=== PATIENT | male | born 1940 | race Caucasian/White ===

== ENCOUNTER → 2017-01-11 | Outpatient (REF) ==
[~2017-01-11] MED LIST: ACID REDUCER200 MG PO; ATIVAN 1MG T1 MG/TAB PO; CALCIUM200 MG PO; GAS FREE EXTRA125 MG; IRON325 MG PO; LORAZEPAM2 MG PO; MULTIPLE VITAMI1 TA2 PO; PERCOCET 325 MG1 TA2 PO; PRILOSEC 20MG20 MG PO
== END ==
LOC: ZLAB.WCH 11:36
DX: Z01.89 Encounter for other specified special examinations (principal)

== ENCOUNTER → 2019-03-30 | Outpatient (CLI) | payer MEDICARE ==
[2019-03-30 14:08] LABS: CREATININE, serum 1.25 (0.66-1.25)
== END ==
LOC: COL.LAB 13:09
PROVIDERS: Nurse Practitioner Family
DX: Z01.812 Encounter for preprocedural laboratory examination (principal)

== ENCOUNTER → 2019-04-08 | Outpatient (CLI) | payer MEDICARE | LOC: COL.RAD 04-01 07:30 | DX: S22.070A Wedge compression fracture of T9-T10 vertebra, initial encounter for closed fracture (principal); S22.050A Wedge compression fracture of T5-T6 vertebra, initial encounter for closed fracture; M47.814 Spondylosis without myelopathy or radiculopathy, thoracic region | CPT/HCPCS: A9585 ==

== ENCOUNTER 2021-07-17 12:17 | Emergency (ER) | payer MEDICARE ==
[~2021-07-17] VITALS: Ht 162.6 cm; Wt 61.4 kg
[~2021-07-17 12:17] MED LIST changes: +FOSAMAX5 MG PO
[2021-07-17 12:25] VITALS: TEMP 97.2
[2021-07-17 12:46] LABS: BASO % 0.5 % (0.0-2.0); EOS % 0.2 % (0-4.0); GRAN # 6.3 K/mm3 (1.4-6.5); GRAN % 74.4 % (42.2-75.2); HEMATOCRIT 37.2 % (42.0-52.0); HEMOGLOBIN 12.9 g/dl (13.5-18.0); LYMPH # 0.9 K/mm3 (1.2-3.4); MEAN CELL VOLUME 102 fl (80.0-100.0); MEAN CORPUSCULAR HEMOGLOBIN 35 pg (27.0-31.0); MEAN CORPUSCULAR HGB CONC 35 g/dl (33.0-37.0); MEAN PLATELET VOLUME 8.8 fl (7.4-10.4); MONO # 1.2 K/mm3 (0.1-0.6); MONO % 14.3 % (1.7-9.3); PLATELET COUNT 262 K/mm3 (130-400); RED BLOOD COUNT 3.65 M/mm3 (4.20-5.60); REDCELL DISTRIBUTION WIDTH-CV 12.2 % (11.5-14.5)
[2021-07-17 12:48] LABS: COLLECTION METHOD CLEAN CATCH
[2021-07-17 12:53] LABS: PH 5 (5-8); SQUAMOUS EPITHELIAL None Seen /hpf (0-10); URINE APPEARANCE Clear (CLEAR/HAZY); URINE BACTERIA None Seen (NONE SEEN); URINE BILIRUBIN Negative (NEGATIVE); URINE BLOOD Negative (NEGATIVE); URINE COLOR Yellow (YELLOW); URINE GLUCOSE Negative (NEGATIVE); URINE KETONE Negative (NEGATIVE); URINE LEUKOCYTE ESTERASE Negative (NEGATIVE); URINE NITRATE Negative (NEGATIVE); URINE PROTEIN(semi-quant) Negative (NEGATIVE); URINE RBC 0-2 /hpf (0-2); URINE UROBILINOGEN Negative (NEGATIVE)
[2021-07-17 13:05] LABS: ALBUMIN 3.7 gm/dL (3.4-4.8); BILIRUBIN,TOTAL 0.5 mg/dL (0.2-1.2); C-REACTIVE PROTEIN 5.75 mg/dL (0.00-0.50); CREATININE, serum 1.21 mg/dL (0.72-1.25); POTASSIUM 4.8 mmol/L (3.5-4.5); TOTAL PROTEIN 7.8 gm/dL (6.2-8.1)
[2021-07-17 14:35] VITALS: BP 120/61; PULSE 90
== END 2021-07-17 14:40 | disposition home or self-care (01) ==
LOC: COL.ER 12:17
PROVIDERS: Family Medicine
DX: K59.00 Constipation, unspecified (principal); K21.9 Gastro-esophageal reflux disease without esophagitis; Z79.899 Other long term (current) drug therapy
CPT/HCPCS: J7120

== ENCOUNTER 2022-09-17 08:51 | Emergency (ER) | payer MEDICARE ==
[2022-09-17 08:54] VITALS: TEMP 97.2
[2022-09-17 09:13] LABS: HEMATOCRIT 38.2 % (42.0-52.0); MEAN CELL VOLUME 103 fl (80.0-100.0); MEAN CORPUSCULAR HEMOGLOBIN 35 pg (27-31); MEAN CORPUSCULAR HGB CONC 34 g/dl (33.0-37.0); MEAN PLATELET VOLUME 9.4 fl (7.4-10.4); PLATELET COUNT 225 K/mm3 (130-400); RED BLOOD COUNT 3.71 M/mm3 (4.20-5.60); REDCELL DISTRIBUTION WIDTH-CV 13.3 % (11.5-14.5)
[2022-09-17 09:20] LABS: INR 1.1 (0.8-3.0); PROTHROMBIN TIME 12.5 SECONDS (9.7-12.8)
[2022-09-17 09:31] LABS: ALBUMIN 3.5 gm/dL (3.4-4.8); BILIRUBIN,TOTAL 0.5 mg/dL (0.2-1.2); CALCIUM 9.6 mg/dL (8.4-10.2); CREATININE, serum 1.24 mg/dL (0.72-1.25); POTASSIUM 4.5 mmol/L (3.5-4.5); TOTAL PROTEIN 7.1 gm/dL (6.2-8.1)
[2022-09-17 09:59] LABS: BAND 5 % (0-10); BASOPHIL 1 % (0-2); LYMPHOCYTE 7 % (20.0-51.0); METAMYELOCYTE 1 % (0-0); NEUTROPHILS 77 % (42.0-75.2); NUCLEATED RED BLOOD CELL 1 (0-6)
[2022-09-17 10:00] LABS: PLATELET ESTIMATE NORMAL (NORMAL)
[2022-09-17 12:08] VITALS: BP 147/78; PULSE 79
== END 2022-09-17 12:13 | disposition short-term general hospital (02) ==
LOC: COL.ER 08:51
PROVIDERS: Emergency Medicine
DX: S42.101A Fracture of unspecified part of scapula, right shoulder, initial encounter for closed fracture (principal); S22.038A Other fracture of third thoracic vertebra, initial encounter for closed fracture; S22.43XA Multiple fractures of ribs, bilateral, initial encounter for closed fracture; S27.321A Contusion of lung, unilateral, initial encounter; S00.03XA Contusion of scalp, initial encounter; J96.91 Respiratory failure, unspecified with hypoxia; Z99.81 Dependence on supplemental oxygen; R40.2412 Glasgow coma scale score 13-15, at arrival to emergency department; R74.01 Elevation of levels of liver transaminase levels; Z79.82 Long term (current) use of aspirin; W10.9XXA Fall (on) (from) unspecified stairs and steps, initial encounter; Y93.39 Activity, other involving climbing, rappelling and jumping off
CPT/HCPCS: J7120

== ENCOUNTER 2024-04-08 07:26 | Outpatient (CLI) | payer MEDICARE ==
[~2024-04-08] VITALS: Ht 162.6 cm; Wt 42.7 kg
[2024-04-08] MEDS ORDERED: Cosyntropin 0.25 MG in NS 5 ML IV ONE (08:00)
[2024-04-08 08:05] VITALS: BP 99/61; PULSE 101; TEMP 97.9
[2024-04-08 08:47] LABS: POTASSIUM 4.1 mEq/L (3.5-4.5)
[2024-04-08] MEDS ORDERED: TYLENOL 325MG325 MG PO (09:14)
[2024-04-08] MEDS ORDERED: VITAMIN C500 MG PO (09:15)
[2024-04-08] MEDS ORDERED: OSCAL 500 TAB500 MG PO (09:15)
[2024-04-08] MEDS ORDERED: ASPIRIN E.C. 8181 MG PO (09:15)
[2024-04-08] MEDS ORDERED: ATIVAN2 MG PO (09:16)
[2024-04-08] MEDS ORDERED: ZYRTEC 10MG10 MG PO (09:16)
[2024-04-08] MEDS ORDERED: FLONASEALLERGY NS (09:16)
[2024-04-08] MEDS ORDERED: COMPLETE MULTI1 TAB PO (09:16)
[2024-04-08] MEDS ORDERED: PRIL40 PO (09:17)
[2024-04-08] MEDS ORDERED: INFANTS AQU400 IU/ML PO (09:17)
[2024-04-08 09:34] VITALS: BP 102/73; PULSE 100
--- NOTE | 2024-04-08 09:35 | NUR ---
Pt remains free of complaints. IV DC'd, site wrapped with coban. Pt assisted back to wheelchair, steady with transfer. He is assisted out to 's car by WC.
[2024-04-11 05:42] LABS: ADRENOCORTICOTROPIC HORMONE 16.5 pg/mL (7.2-63.3)
== END 2024-04-08 09:35 | disposition home or self-care (01) ==
LOC: EUO 07:26
PROVIDERS: Internal Medicine
DX: I95.9 Hypotension, unspecified (principal)
CPT/HCPCS: J0834